=== PATIENT | female | born 1990 | race Caucasian/White ===

== ENCOUNTER 2019-11-12 18:20 | Emergency (ER) | payer BC, OTHER ==
--- NOTE | 2019-11-12 20:44 | UC ---
Head Injury HPI - HPI Summary HPI Summary: 28-year-old female presents with complaints of left jaw and episcopal pain. States 4 days ago she accidentally slipped while descending some stairs striking the left side of her head on a wooden beam. No loss of consciousness and she is able to recall events immediately before and after the incident. States she has had a persistent mild frontal headache without visual disturbances. Reports mild nausea States she had some mild dizziness immediately after the injury however this has resolved. States her jaw pain is worse with eating. Has been taking Aleve with some improvement in symptoms. Also reports some fullness of the left ear. States she sustained a bruise to her left elbow and left buttocks but has no complaints of elbow or hip pain. Denies photophobia, phonophobia, slurred or difficulty speaking, vomiting, weakness, numbness, or tingling. - History Of Current Complaint Chief Complaint: UCGeneralIllness Stated Complaint: S/P FALL 11/09/18, HEAD INJURY, ELBOW/EAR PAIN Time Seen by Provider: 11/12/19 20:28 Hx Obtained From: Patient Hx Last Menstrual Period: 10/19/19- denies risk of , "boyfriend isn't fertile" Pain Intensity: 5 - Allergies/Home Medications Allergies/Adverse Reactions: Allergies Allergy/AdvReac Type Severity Reaction Status Date / Time amoxicillin Allergy Intermediate Hives Verified 11/12/19 18:47 Home Medications: Home Medications Naproxen Sodium [Aleve] 220 mg PO ONCE 11/12/19 [History Confirmed 11/12/19] PMH/Surg Hx/FS Hx/Imm Hx Previously Healthy: Yes - Denies sigificant PMH - Surgical History Surgical History: None - Family History Known Family History: Positive: Non-Contributory - Social History Occupation: Unemployed Lives: With Family Alcohol Use: Occasionally Substance Use Type: None Smoking Status (MU): Light Every Day Tobacco Smoker Type: Cigarettes Amount Used/How Often: 5 cigs daily Review of Systems All Other Systems Reviewed And Are Negative: Yes Constitutional: Positive: Negative Skin: Positive: Bruising Eyes: Negative: Blurred Vision, Diplopia, Photophobia ENT: Positive: Other - See HPI Respiratory: Positive: Negative Cardiovascular: Positive: Negative Gastrointestinal: Positive: Nausea Genitourinary: Positive: Negative Musculoskeletal: Positive: Negative Neurological: Positive: Headache. Negative: Weakness, Paresthesia, Numbness Is Patient Immunocompromised?: No Physical Exam - Summary Physical Exam Summary: GENERAL APPEARANCE: Well developed, well nourished, alert and cooperative, and appears to be in no acute distress. HEAD: Atraumatic. Normocephalic. Tendness over the left TMJ without clicks, catches, or gross deformity. Tenderness to the left episcopal without gross deformity, depression, ecchymosis, or edema. EYES: Conjunctiva clear. No drainage. PERRL, EOM intact. Vision is grossly intact. EARS: External auditory canals and tympanic membranes clear, hearing grossly intact. NOSE: No nasal discharge. THROAT: Pharynx normal. No tonsilar inflammation, swelling, exudate, or lesions. Uvula midline. Oral cavity normal. Teeth and gingiva in good general condition. NECK: Neck supple, non-tender without lymphadenopathy. CARDIAC: Normal S1 and S2. No S3, S4 or murmurs. Rhythm is regular. There is no peripheral edema, cyanosis or pallor. Extremities are warm and well perfused. Capillary refill is less than 2 seconds. Peripheral pulses intact. LUNGS: Clear to auscultation without rales, rhonchi, wheezing or diminished breath sounds. ABDOMEN: Positive bowel sounds. Soft, nondistended, nontender. No guarding or rebound. No masses or hepatosplenomegally. MUSKULOSKELETAL: ROM intact to all extremities. No joint erythema or tenderness. Normal muscular development. Normal gait. NEUROLOGICAL: CN II-XII intact. Strength and sensation symmetric and intact throughout. Cerebellar testing normal. SKIN: Skin normal color, texture and turgor with no lesions or eruptions. Triage Information Reviewed: Yes Vital Signs: Initial Vital Signs Temp 98.4 F 11/12/19 18:40 Pulse 89 11/12/19 18:40 Resp 15 11/12/19 18:40 BP 124/67 11/12/19 18:40 Pulse Ox 100 11/12/19 18:40 Vital Signs Reviewed: Yes Diagnostics - Radiology No standard instances Radiology Interpretation Completed By: Radiologist Summary of Radiographic Findings: Exam: CT Maxillofacial Without Contrast. Clinical indication: Injury or trauma; Fall; Initial encounter; Blunt trauma ( contusions or hematomas); Jaw; Left;. Additional info: Left jaw pain after hitting head S/P fall. COMPARISON: No relevant prior studies available. FINDINGS: Orbits: Orbits are normal. Globes are unremarkable. Sinuses: Mucoperiosteal thickening involving the right maxillary sinus. Bones/joints: No acute facial fracture. Soft tissues: Unremarkable. IMPRESSION: No acute facial fracture. No evidence of a fracture of the mandible. Head Injury Course/Dx - Course Course Of Treatment: 28-year-old female presents with complaints of left jaw and episcopal pain. States 4 days ago she accidentally slipped while descending some stairs striking the left side of her head on a wooden beam. No loss of consciousness and she is able to recall events immediately before and after the incident. States she has had a persistent mild frontal headache without visual disturbances. Reports mild nausea States she had some mild dizziness immediately after the injury however this has resolved. States her jaw pain is worse with eating. Has been taking Aleve with some improvement in symptoms. Also reports some fullness of the left ear. States she sustained a bruise to her left elbow and left buttocks but has no complaints of elbow or hip pain. Denies photophobia, phonophobia, slurred or difficulty speaking, vomiting, weakness, numbness, or tingling. - Differential Dx/Diagnosis Differential Diagnosis/HQI/PQRI: Cerebral Contusion, Concussion Without LOC, Contusion, Intracranial Bleed, Zygomatic Fracture Provider Diagnosis: Closed head injury without loss of consciousness, Contusion of mandibular joint area Discharge ED - Sign-Out/Discharge Documenting (check all that apply): Patient Departure All imaging exams completed and their final reports reviewed: No Studies - Discharge Plan Condition: Critical Patient Education Materials: Head Injury (ED) Referrals: No Primary Care Phys,NOPCP [Primary Care Provider] - [facility] [Outside] - 5 Days (If no improvement in symptoms. Call for an appointment.) Additional Instructions: The CT scan performed tonight showed no evidence of fracture. I suspect that you have a contusion (see Jackson) over the jaw area. Continue to take ibuprofen (Advil, Motrin) or naproxen (Aleve) according to directions as needed for headache or pain. Apply ice to the affected area for 15-20 minutes at least 4 times a day to help with pain and swelling. Stick to a soft diet until you are pain-free. Follow-up with the [facility] in 5-7 days especially if symptoms are not improving. Call for an appointment. Seek immediate medical attention in the emergency room if you have a severe headache that is not managed with pain medication, visual disturbances, slurred or difficulty speaking, confusion, seizure-like activity, persistent dizziness, persistent vomiting, weakness, numbness, or tingling of the arms or legs, you are unable to open or close her mouth, or have any worsening of symptoms. - Billing Disposition and Condition Condition: CRITICAL
[2019-11-12 22:49] VITALS: BP 96/58
== END 2019-11-12 23:38 | disposition home or self-care (01) ==
LOC: UCCORT 18:20
DX: S09.90XA Unspecified injury of head, initial encounter (principal); S00.83XA Contusion of other part of head, initial encounter; W10.9XXA Fall (on) (from) unspecified stairs and steps, initial encounter; W22.8XXA Striking against or struck by other objects, initial encounter; Y92.9 Unspecified place or not applicable; Z88.0 Allergy status to penicillin; F17.210 Nicotine dependence, cigarettes, uncomplicated
CPT/HCPCS: 70486; 84702; 99202; G0463